=== PATIENT | female | born 1970 | race Caucasian/White ===

== ENCOUNTER 2016-07-18 10:33 | Outpatient (CLI) | payer BC | END 2016-07-18 10:34 | disposition home or self-care (01) | DX: M25.511 Pain in right shoulder (principal) ==

== ENCOUNTER 2016-10-06 12:50 | Outpatient (CLI) | payer BC | END 2016-10-06 12:51 | disposition critical access hospital (66) | DX: R46.89 Other symptoms and signs involving appearance and behavior (principal) | CPT/HCPCS: A0425; A0429 ==

== ENCOUNTER 2016-10-06 13:12 | Emergency (ER) | payer BC | END 2016-10-06 15:16 | disposition home or self-care (01) | DX: F41.0 Panic disorder [episodic paroxysmal anxiety] (principal); F17.200 Nicotine dependence, unspecified, uncomplicated ==

== ENCOUNTER 2018-01-28 12:57 | Emergency (ER) | payer BC ==
--- NOTE | 2018-01-28 14:44 | ED Physician Documentation ---
PD HPI HEENT - Stated complaint Stated Complaint: FACIAL NUMBNESS/EAR PX - Chief complaint Chief Complaint: General - History obtained from History obtained from: Patient, Friend - History of Present Illness Timing - onset: How many days ago (3) Timing - duration: Days (3) Timing - details: Gradual onset, Still present Location: Right ear, Other (onset of feeling right facial weakness and some pain around right face/ear. The weakness has progressed. Right eye irritated from feeling dry. Had trouble sipping from cup as dribbled right corner of mouth.) Associated symptoms: No: Fever, Congestion, Facial swelling, Headache (but right ear area pain) Similar symptoms before: Has not had sx before, Other (no travel to [place] areas; no recent tick bites.) Recently seen: Clinic (dental infection few weeks ago front tooth, improved after antibiotics.) Review of Systems Constitutional: denies: Fever, Chills Eyes: denies: Loss of vision, Decreased vision Ears: denies: Loss of hearing, Ear pain, Drainage/discharge Nose: denies: Rhinorrhea / runny nose, Congestion Throat: reports: Other (side of tongue feels numbness). denies: Sore throat Cardiac: denies: Chest pain / pressure Respiratory: denies: Cough GI: denies: Nausea, Vomiting, Diarrhea Skin: denies: Rash, Lesions Neurologic: reports: Focal weakness. denies: Numbness, Altered mental status, Headache, Head injury PD PAST MEDICAL HISTORY - Past Medical History Past Medical History: Yes Cardiovascular: None Respiratory: None Endocrine/Autoimmune: None GI: Hiatal hernia LOG GRADER: None : None HEENT: None Psych: None Musculoskeletal: None - Past Surgical History Past Surgical History: Yes /LOG GRADER: Tubal ligation - Present Medications Home Medications: Ambulatory Orders Medication Instructions Recorded Confirmed Acyclovir 800 mg PO 5XD #25 tablet 01/28/18 Cephalexin [Keflex] 500 mg PO TID #15 capsule 01/28/18 Dexamethasone [Decadron] 4 mg PO DAILY #5 tablet 01/28/18 - Allergies Allergies/Adverse Reactions: Allergies Allergy/AdvReac Type Severity Reaction Status Date / Time No Known Drug Allergies Allergy Verified 04/25/13 19:27 - Social History Does the pt smoke?: Yes Smoking Status: Current every day smoker Does the pt drink ETOH?: No Does the pt have substance abuse?: No - Immunizations Immunizations are current?: Yes - POLST Patient has POLST: No PD ED PE NORMAL - Vitals Vital signs reviewed: Yes - General General: Alert and oriented X 3, Well developed/nourished - HEENT HEENT: Moist mucous membranes, Pharynx benign, Other (left ear normal. Right TM normal. Mid canal with some redness and mild swelling. Outer ear and mastoid area has some tenderness. No redness/rash noted. ) - Neck Neck: Supple, no meningeal sign, Other (mild right anterior adenopathy. ) - Cardiac Cardiac: RRR, No murmur - Respiratory Respiratory: Clear bilaterally - Abdomen Abdomen: Soft, Non tender - Derm Derm: Normal color, Warm and dry - Neuro Neuro: Alert and oriented X 3, No sensory deficit, Normal speech, Other ( moderate right facial palsy including flattening of the forehead muscle creases. ) Results - Vitals Vitals: Vital Signs - 24 hr 01/28/18 01/28/18 01/28/18 13:00 14:22 14:40 Temperature 36.4 C L Heart Rate 69 62 64 Respiratory 18 16 16 Rate Blood Pressure 121/72 109/53 L 99/61 O2 Saturation 99 100 98 01/28/18 01/28/18 16:29 17:04 Temperature Heart Rate 53 L 68 Respiratory 12 14 Rate Blood Pressure 112/70 118/72 O2 Saturation 98 98 Oxygen O2 Source Room air - Rads (name of study) facial/head CT Radiology: Prelim report reviewed (no acute findings) PD MEDICAL DECISION MAKING - ED course Complexity details: reviewed results, considered differential (gradual onset right facial weakness, including forehead, so c/w peripheral facial nerve. She has pain by right ear/side of face and had had recent dental infection, so I had concern for abscess or mass effect in mastoid/ear canal area and got CT. This was okay. Some redness of the mid right ear canal. Concern then for herpetic or cellulitic.), d/w patient - Sepsis Event Vital Signs: Vital Signs - 24 hr 01/28/18 01/28/18 01/28/18 13:00 14:22 14:40 Temperature 36.4 C L Heart Rate 69 62 64 Respiratory 18 16 16 Rate Blood Pressure 121/72 109/53 L 99/61 O2 Saturation 99 100 98 01/28/18 01/28/18 16:29 17:04 Temperature Heart Rate 53 L 68 Respiratory 12 14 Rate Blood Pressure 112/70 118/72 O2 Saturation 98 98 Oxygen O2 Source Room air Departure - Departure Disposition: 01 Home, Self Care Clinical Impression: Facial palsy Condition: Stable Record reviewed to determine appropriate education?: Yes Instructions: ED [place] Palsy Follow-Up: Lucho Benson ARNP [Primary Care Provider] - Prescriptions: Acyclovir 800 mg PO 5XD #25 tablet Cephalexin [Keflex] 500 mg PO TID #15 capsule Dexamethasone [Decadron] 4 mg PO DAILY #5 tablet Comments: Your CT scans were normal and so did not show any signs of abscess, tumors, swelling or obvious bleeding in the ear canal area or that area of the brain. This seems like a irritation of the facial nerve. This can be related to infections and need to have some redness of the ear canal. We will treated for both viral and bacterial infections. Call your primary care tomorrow for an appointment later this week or early next week for follow-up of this. Use some eye moisturizing drops or ointment to keep her from getting irritated since it does not close fully. Discharge Date/Time: 01/28/18 17:05
[2018-01-28] MEDS: ACYCLOVIR 200 MG CAPSULE PO STA (15:26)
[2018-01-28] MEDS: DEXAMETHASONE 10 MG/ML VIAL PO STA (15:26)
[2018-01-28] MEDS ORDERED: CHERRY SYRUP 10 ML UDC PO ONE (15:36)
--- NOTE | 2018-01-28 15:52 | CT Report ---
Procedure Date: 01/28/2018 Accession Number: [id number] / [id number] Procedure: CT - Head W/O CPT Code: FULL RESULT: EXAM: CT HEAD EXAM DATE: 01/28/2018 03:40 PM. CLINICAL HISTORY: Right facial pain, numbness, swelling and palsy over the last several days. COMPARISON: None. TECHNIQUE: Multiaxial CT images were obtained from the foramen magnum to the vertex. Reformats: Sagittal and coronal. IV contrast: None. In accordance with CT protocol optimization, one or more of the following dose reduction techniques were utilized for this exam: automated exposure control, adjustment of mA and/or KV based on patient size, or use of iterative reconstructive technique. FINDINGS: Parenchyma: No intraparenchymal hemorrhage. No evidence of mass, midline shift, or CT findings of infarction. Pozo-white differentiation is distinct. Extraaxial Spaces: Normal for age. No subdural or epidural collections identified. Ventricles: Normal in size and position. Sinuses and Orbits: Imaged paranasal sinuses, orbits, and mastoids show no significant abnormality. Bones: No evidence of fracture or calvarial defect. Other: None. IMPRESSION: Normal head CT. RADIA
--- NOTE | 2018-01-28 15:59 | CT Report ---
Procedure Date: 01/28/2018 Accession Number: [id number] / [id number] Procedure: CT - Facial Bones W/O CPT Code: FULL RESULT: EXAM: CT MAXILLOFACIAL WITHOUT CONTRAST EXAM DATE: 01/28/2018 03:41 PM. CLINICAL HISTORY: Right pain, palsy, numbness and swelling for several days. COMPARISONS: None. TECHNIQUE: Thin-section axial images were acquired of the face without contrast. Post-processing: Coronal and sagittal reformats. Other: None. In accordance with CT protocol optimization, one or more of the following dose reduction techniques were utilized for this exam: automated exposure control, adjustment of mA and/or KV based on patient size, or use of iterative reconstructive technique. FINDINGS: Soft Tissue: The infratemporal fossa and parapharyngeal spaces are unremarkable. Orbits: Symmetric and unremarkable. Bones: No fracture or bone lesion. Temporomandibular Joints: The temporomandibular joints are symmetric and normally located. Sinuses: Normal. Extremely minute amount of mucosal thickening for right maxillary sinus. No mucosal thickening or fluid levels. Other: Extensive periodontal disease. No adjacent abscess nor edema. Middle ears and mastoid air cells are clear. IMPRESSION: 1. Extensive periodontal disease. 2. No radiographic explanation for this lady's presenting symptoms. RADIA
[2018-01-28 17:05] VITALS: BP 118/72
== END 2018-01-28 17:05 | disposition home or self-care (01) ==
LOC: ED 12:57
DX: G51.0 Bell's palsy (principal); F17.200 Nicotine dependence, unspecified, uncomplicated
CPT/HCPCS: 70450; 70486; 93005; 99283; 99284; A9270

== ENCOUNTER 2021-10-29 05:20 | Emergency (ER) | payer BC ==
[2021-10-29] MEDS ORDERED: oxyCODONE 5 MG TABLET PO STA (05:58)
[2021-10-29] MEDS ORDERED: diazePAM 5 MG TABLET PO STA (05:59)
--- NOTE | 2021-10-29 05:59 | ED Physician Documentation ---
PD HPI BACK PAIN - Stated complaint Stated Complaint: LOWER BACK PX - Chief complaint Chief Complaint: Back Pain - Additional information Additional information: Patient is a 51-year-old female presenting to the emergency department with mid low back pain. Endorses 1 day history spasming mid low back pain which she describes as "like labor pains". Denies any trauma to the back. Denies fever, chills, saddle paresthesias, changes in bowel or bladder habit or lower extremity weakness. Review of Systems Ten Systems: 10 systems reviewed and negative Constitutional: denies: Fever Eyes: denies: Loss of vision Ears: denies: Loss of hearing Nose: denies: Rhinorrhea / runny nose Throat: denies: Dental pain / toothache Cardiac: denies: Chest pain / pressure Respiratory: denies: Dyspnea GI: denies: Abdominal Pain : denies: Dysuria Skin: denies: Rash Musculoskeletal: reports: Back pain Neurologic: denies: Generalized weakness, Focal weakness, Numbness PD PAST MEDICAL HISTORY - Past Medical History Past Medical History: Yes Cardiovascular: None Respiratory: None Endocrine/Autoimmune: None GI: Hiatal hernia HOOP BENDER TANK: None : None HEENT: None Psych: None Musculoskeletal: None - Past Surgical History Past Surgical History: Yes /HOOP BENDER TANK: Tubal ligation - Present Medications Home Medications: Ambulatory Orders Medication Instructions Recorded Confirmed Acetaminophen [Tylenol] 650 mg PO Q6H PRN #30 tab 10/29/21 Ibuprofen [Motrin] 800 mg PO Q8H PRN #30 tablet 10/29/21 methocarbamoL [Robaxin] 500 mg PO Q6H PRN #20 tablet 10/29/21 - Allergies Allergies/Adverse Reactions: Allergies Allergy/AdvReac Type Severity Reaction Status Date / Time No Known Drug Allergies Allergy Verified 10/29/21 05:35 - Social History Does the pt smoke?: Yes Smoking Status: Current every day smoker Does the pt drink ETOH?: No Does the pt have substance abuse?: No - Immunizations Immunizations are current?: Yes - POLST Patient has POLST: No PD ED PE NORMAL - Vitals Vital signs reviewed: Yes - General General: Alert and oriented X 3 - HEENT HEENT: Atraumatic - Neck Neck: Supple, no meningeal sign - Cardiac Cardiac: RRR - Respiratory Respiratory: No respiratory distress - Abdomen Abdomen: Normal bowel sounds - Female Female : Deferred - Back Back: No spinal TTP - Derm Derm: Normal color - Extremities Extremities: No deformity - Neuro Neuro: Alert and oriented X 3, No motor deficit, No sensory deficit, Other (Normal patellar reflexes bilaterally lower extremities.) Results - Vitals Vitals: Vital Signs - 24 hr 10/29/21 05:25 Temperature 36.5 C Heart Rate 101 H Respiratory 20 Rate Blood Pressure 128/108 H O2 Saturation 99 Oxygen O2 Source Room air PD MEDICAL DECISION MAKING - ED course Complexity details: d/w patient, d/w family ED course: Patient is 51-year-old female presenting to the emergency department with acute onset low back pain. No history of trauma. Afebrile, hemodynamic stable arrival to the emergency department. No focal or lateralizing neurologic deficits. Normal ambulation. Patient denied any other red flag type symptoms. Was given medication for pain control. On reevaluation was found to be resting comfortably and reported significant improvement in her symptoms. Had a discussion with her and her about low back pain as well as its management at home. Will discharge with ongoing course ibuprofen, acetaminophen and Robaxin for use as needed. Encourage careful follow-up with primary care or return to the emergency department for new or worsening symptoms. Departure - Departure Disposition: 01 Home, Self Care Clinical Impression: Back pain Instructions: ED Neck Back Pain General Prescriptions: Ibuprofen [Motrin] 800 mg PO Q8H PRN #30 tablet PRN Reason: PAIN &/OR FEVER methocarbamoL [Robaxin] 500 mg PO Q6H PRN #20 tablet PRN Reason: muscle spasm Acetaminophen [Tylenol] 650 mg PO Q6H PRN #30 tab PRN Reason: Pain Comments: Thank you for allowing us to care for you today at [facility]. I have sent some prescriptions to [facility] in [place]. Over the course of the next few days it is very important that you stay well- hydrated. I also strongly recommend activity as tolerated is complete inactivity can make back pain such as which you are experiencing worse. Alternating Motrin and Tylenol throughout the day is an excellent strategy for pain control but I have also sent a muscle relaxer for your use as needed. Please be cautious as this is a sedating medication and should not be used if you are operating a motor vehicle, using heavy machinery or you are the sole swine nutritionist of young children. Please make a follow-up appoint with your primary care doctor soon as possible for medical reevaluation. If anytime you develop any new or worsening symptoms such as worsening pain, fever, numbness or tingling around the anus or genitalia, loss of bowel or bladder control or weakness in your lower extremities please return to the emergency department immediately for further evaluation and treatment.
[2021-10-29 06:51] VITALS: BP 114/62
== END 2021-10-29 06:51 | disposition home or self-care (01) ==
LOC: ED 05:20
DX: M54.50 Low back pain, unspecified (principal); F17.200 Nicotine dependence, unspecified, uncomplicated
CPT/HCPCS: 99282; 99283; A9270